=== PATIENT | female | born 1990 | race Caucasian/White ===

== ENCOUNTER 2017-10-23 15:36 | Day surgery (SDC) | payer OTHER ==
[2017-10-23] MEDS ORDERED: FENTAnyl 50 MCG/ML VIAL (18:04)
[2017-10-23] MEDS ORDERED: MIDAZOLAM 1 MG/ML 2 ML INJ ×2 (18:05)
== END 2017-10-23 18:57 | disposition home or self-care (01) ==
LOC: GIL 15:36
DX: K92.1 Melena (principal); K64.8 Other hemorrhoids
CPT/HCPCS: 45378